=== PATIENT | male | born 1975 | race Caucasian/White ===

== ENCOUNTER 2019-03-23 09:46 | Inpatient (IN) | payer OTHER ==
[2019-03-23 10:12] VITALS: BMI 17.4
--- NOTE | 2019-03-23 12:14 | HP ---
CIWA Score Nausea/Vomitin-Mild Nausea/No Vomiting Muscle Tremors: 2 Anxiety: 2 Agitation: 1-Slight > Activity Paroxysmal Sweats: 2 Orientation: 1-Uncertain about Date Tacttile Disturbances: 1-Very Mild Itch/Numbness Auditory Disturbances: 2-Mild Harshness/Frighten Visual Disturbances: 2-Mild Sensitivity Headache: 0-None Present CIWA-Ar Total Score: 14 - Admission Criteria OASAS Guidelines: Admission for Medically Managed Detox: Requires at least one of the followin. CIWA greater than 12 2. Seizures within the past 24 hours 3. Delirium tremens within the past 24 hours 4. Hallucinations within the past 24 hours 5. Acute intervention needed for co occurring medical disorder 6. Acute intervention needed for co occurring psychiatric disorder 7. Severe withdrawal that cannot be handled at a lower level of care (continued vomiting, continued diarrhea, abnormal vital signs) requiring intravenous medication and/or fluids 8. Patient presents the following: CIWA greater than 12 Admission Criteria Met: Admission criteria met Admitting History and Physical - Admission Chief Complaint: alcohol withdrawal sx History of Present Illness: Patient is a 43 yo homeless male with hx of alcohol dependence is here seeking inpatient detox d/t withdrawal sx when he does not use. Denies hx of seizures or blackouts. PMHX: denies. Psych: anxiety reports no meds. Denies SI/HI or hx of suicide attempt. History Source: Patient Limitations to Obtaining History: No Limitations - Smoking History Smoking history: Current every day smoker Have you smoked in the past 12 months: Yes Aproximately how many cigarettes per day: 10 - Alcohol/Substance Use Hx Alcohol Use: Yes (VODKA) Admission [facility] Allergies/Adverse Reactions: Allergies Allergy/AdvReac Type Severity Reaction Status Date / Time Fish Containing Products AdvReac Unknown Verified 03/23/19 10:00 - Ebola screening Have you traveled outside of the country in the last 21 days: No Have you had contact with anyone from an Ebola affected area: No - Review of Systems Constitutional: Chills, Loss of Appetite, Unintentional Wgt. Loss ("tons of weight 20+ lbs") EENT: reports: No Symptoms Reported Respiratory: reports: No Symptoms reported Cardiac: reports: No Symptoms Reported GI: reports: Diarrhea, Nausea, Poor Appetite, Poor Fluid Intake : reports: No Symptoms Reported Musculoskeletal: reports: Back Pain Integumentary: reports: No Symptoms Reported Neuro: reports: Headache, Weakness, Dizziness Endocrine: reports: No Symptoms Reported Hematology: reports: No Symptoms Reported Psychiatric: reports: Orientated x3, Anxious Other Systems: Reviewed and Negative Patient History - Patient Medical History Hx Anemia: No Hx Asthma: No Hx Chronic Obstructive Pulmonary Disease (COPD): No Hx Cancer: No Hx Cardiac Disorders: No Hx Congestive Heart Failure: No Hx Hypertension: No Hx Hypercholesterolemia: No HX Cerebrovascular Accident: No Hx Seizures: No Hx Dementia: No Hx Diabetes: No Hx Gastrointestinal Disorders: No Hx Genitourinary Disorders: No Hx Sexually Transmitted Disorders: No Hx Renal Disease (ESRD): No Hx Thyroid Disease: No Hx Human Immunodeficiency Virus (HIV): No (NEGATIVE IN 11/2011) Hx Hepatitis C: No Hx Depression: No Hx Suicide Attempt: No Hx Bipolar Disorder: No Hx Schizophrenia: No - Patient Surgical History Past Surgical History: Yes Hx Neurologic Surgery: No Hx Cataract Extraction: No Hx Cardiac Surgery: No Hx Lung Surgery: No Hx Breast Surgery: No Hx Breast Biopsy: No Hx Abdominal Surgery: Yes (BILATERAL INGUINAL HERNIA REPAIR A CHILD) Hx Appendectomy: No Hx Cholecystectomy: No Hx Genitourinary Surgery: No Hx Section: No Hx Orthopedic Surgery: No Anesthesia Reaction: No - PPD History Previous Implant?: No Documented Results: Negative w/o proof Implanted On Prior [facility] Admission?: No Date: 08/19/12 PPD to be Administered?: Yes - Smoking Cessation Smoking history: Current every day smoker Have you smoked in the past 12 months: Yes Aproximately how many cigarettes per day: 10 Hx Chewing Tobacco Use: No Initiated information on smoking cessation: Yes 'Breaking Loose' booklet given: 03/23/19 - Substance & Tx. History Hx Alcohol Use: Yes Hx Substance Use: Yes Substance Use Type: Alcohol Hx Substance Use Treatment: Yes ([facility] 2012) - Substances abused Alcohol Substance route: Oral Frequency: Daily Amount used: 2 pints of vodka Age of first use: 15 Date of last use: 03/23/19 Admission Physical Exam [facility] - Vital Signs Vital Signs: Vital Signs - 24 hr 03/23/19 09:59 Temperature 97.2 F L Pulse Rate 94 H Respiratory 20 Rate Blood Pressure 126/81 - Physical General Appearance: Yes: Appropriately Dressed, Alcohol on Breath, Tremorous, Irritable, Anxious HEENTM: Yes: EOMI, Hearing grossly Normal, Normal ENT Inspection, Normocephalic , Normal Voice, NILA, Pharynx Normal, Tm's normal Respiratory: Yes: Chest Non-Tender, Lungs Clear, Normal Breath Sounds, No Respiratory Distress, No Accessory Muscle Use Neck: Yes: Within Normal Limits Breast: Yes: Breast Exam Deferred Cardiology: Yes: Regular Rhythm, Regular Rate Abdominal: Yes: Normal Bowel Sounds, Non Tender, Flat, Soft Genitourinary: Yes: Within Normal Limits Back: Yes: Normal Inspection Musculoskeletal: Yes: full range of Motion, Gait Steady, Pelvis Stable Extremities: Yes: Normal Capillary Refill, Normal Inspection, Normal Range of Motion, Non-Tender Neurological: Yes: pipeline operator II-XII NML intact, Fully Oriented, Alert, Motor Strength 5/5, Depressed Affect Integumentary: Yes: Normal Color, Warm, Diaphoresis Lymphatic: Yes: Within Normal Limits - Diagnostic (1) Alcohol dependence with withdrawal, uncomplicated Current Visit: Yes Status: Acute (2) Weight loss Current Visit: Yes Status: Acute (3) Nicotine dependence Current Visit: Yes Status: Chronic Qualifiers: Nicotine product type: cigarettes Substance use status: uncomplicated Qualified Code(s): F17.210 - Nicotine dependence, cigarettes, uncomplicated Cleared for Admission S - Detox or Rehab [facility] Level of Care: Medically Managed Detox Regimen/Protocol: Librium Breathalyzer - Breathalyzer Breathalyzer: 0.066 Urine Drug Screen - Test Device Lot number: [id number] Expiration date: 10/05/20 - Control Is test valid?: Yes - Results Drug screen NEGATIVE: No Urine drug screen results: THC-Marijuana Inpatient Rehab Admission - Rehab Decision to Admit Inpatient rehab admission?: No
[2019-03-23] MEDS ORDERED: hydrOXYzine PAMOATE 25 MG CAPSULE (FP) PO PRN (12:17)
[2019-03-23] MEDS ORDERED: MAGNESIUM CITRATE 300 ML BOTTLE PO PRN (12:17)
[2019-03-23] MEDS ORDERED: NICOTINE POLACRILEX 2 MG GUM BUC PRN (12:17)
[2019-03-23] MEDS ORDERED: MENTHOL/PHENOL 1 EACH UD MM PRN (12:17)
[2019-03-23] MEDS ORDERED: MAG HYDROX/AL HYDROX/SIMETH 30 ML UNIT-DOSE CUP PO PRN (12:17)
[2019-03-23] MEDS ORDERED: MAGNESIUM HYDROX 2400MG/30ML ORAL SUSPENSION 30 ML CUP PO PRN (12:17)
[2019-03-23] MEDS ORDERED: MELATONIN 5 MG TABLETS PO PRN (12:17)
[2019-03-23] MEDS ORDERED: BISMUTH SUBSALICYLATE 262 MG/15 ML BTL PO PRN (12:17)
[2019-03-23] MEDS ORDERED: ACETAMINOPHEN 325 MG TABLET (FP) PO PRN ×2 (12:17)
[2019-03-23] MEDS ORDERED: IBUPROFEN 400 MG TABLET (FP) PO PRN (12:17)
[2019-03-23] MEDS ORDERED: METHOCARBAMOL 500 MG TABLET PO PRN (12:17)
[2019-03-23] MEDS: chlordiazePOXIDE HCL 25 MG CAPSULE PO PRN (14:37)
[2019-03-23 17:19] LABS: HEMATOCRIT 40.4 % (35.4-49); HEMOGLOBIN 13.9 GM/dL (11.7-16.9); MCH 36.1 pg (25.7-33.7); MCHC 34.4 g/dl (32.0-35.9); MEAN CELL VOLUME 104.9 fl (80-96); MEAN PLT VOLUME 8.6 fl (7.5-11.1); PLATELET COUNT 47 K/MM3 (134-434); RBC 3.85 M/mm3 (4.00-5.60); RDW 12.7 % (11.9-15.9); WHITE BLOOD COUNT 3.4 K/mm3 (4.0-10.0)
[2019-03-23] MEDS: chlordiazePOXIDE HCL 25 MG CAPSULE PO SCH ×2 (17:58→22:08)
[2019-03-23 18:03] LABS: ALBUMIN 4.2 g/dl (3.4-5.0); BILIRUBIN,TOTAL 0.4 mg/dL (0.2-1); BLOOD UREA NITROGEN 6.9 mg/dL (7-18); CALCIUM 9.5 mg/dL (8.5-10.1); CREATININE 0.7 mg/dL (0.55-1.3); POTASSIUM 3.5 mmol/L (3.5-5.1); TOT PROT 7.6 g/dl (6.4-8.2)
[2019-03-23] MEDS: THIAMINE HCL 100 MG TABLET (FP) PO SCH (22:08)
[2019-03-24] MEDS: chlordiazePOXIDE HCL 25 MG CAPSULE PO SCH ×4 (06:17→22:30)
[2019-03-24] MEDS: PRENATAL VITAMINS W/ FOLIC ACID TABLET (FP) PO SCH (10:33)
[2019-03-24] MEDS: NICOTINE 14 MG/24 HOURS TOPICAL PATCH TD SCH (10:35)
--- NOTE | 2019-03-24 13:04 | PN ---
S CIWA - CIWA Score Nausea/Vomitin Muscle Tremors: 3 Anxiety: 1-Mildly Anxious Agitation: 1-Slight > Activity Paroxysmal Sweats: 2 Orientation: 0-Oriented Tacttile Disturbances: 2-Mild Itch/Numbness/Burn Auditory Disturbances: 0-None Visual Disturbances: 0-None Headache: 0-None Present CIWA-Ar Total Score: 11 BHS Progress Note (SOAP) Subjective: interrupted sleep, sweats, shakes , tired , decreased appetite Objective: 03/24/19 13:04 Vital Signs Temperature 98.5 F 03/24/19 09:23 Pulse Rate 91 H 03/24/19 09:23 Respiratory Rate 03/24/19 09:23 Blood Pressure 128/90 03/24/19 09:23 O2 Sat by Pulse Oximetry (%) Laboratory Tests 03/23/19 03/23/19 03/23/19 14:00 14:00 14:00 WBC 3.4 L RBC 3.85 L Hgb 13.9 Hct 40.4 MCV 104.9 H MCH 36.1 H D MCHC 34.4 RDW 12.7 Plt Count 47 L D MPV 8.6 Sodium 137 Potassium 3.5 Chloride 97 L Carbon Dioxide 33 H Anion Gap 7 L BUN 6.9 L Creatinine 0.7 Est GFR (CKD-EPI)AfAm 134.91 Est GFR (CKD-EPI)NonAf 116.40 Random Glucose 123 H Calcium 9.5 Total Bilirubin 0.4 AST 423 H ALT 341 H Alkaline Phosphatase 76 Total Protein 7.6 Albumin 4.2 RPR Titer Nonreactive pt aox3 in nad ambulating , mild tremors 03/24/19 13:06 Assessment: 03/24/19 13:05 withdrawal sx's Plan: cont. detox increase fluids
--- NOTE | 2019-03-24 16:27 | CONSULT ---
[facility] Psychiatric Consult - Data Date of interview: 03/24/19 Admission source: [facility] Identifying data: Patient is approached by this flex o writer operator for psychiatric interview. Mr Dave is found asleep. Resting comfortably. No distress noted. Nursing staff is made aware.
[2019-03-24] MEDS: THIAMINE HCL 100 MG TABLET (FP) PO SCH (22:30)
[2019-03-25] MEDS ORDERED: chlordiazePOXIDE HCL 25 MG CAPSULE PO SCH (05:00)
[2019-03-25] MEDS: chlordiazePOXIDE HCL 25 MG CAPSULE PO PRN (05:35)
[2019-03-25] MEDS: PRENATAL VITAMINS W/ FOLIC ACID TABLET (FP) PO SCH (11:13)
[2019-03-25] MEDS: NICOTINE 14 MG/24 HOURS TOPICAL PATCH TD SCH (11:13)
[2019-03-25 11:44] LABS: EPI CELLS 4.8 /HPF (0-5/HPF); HYALINE CASTS 19 /lpf (0-8); PH,URINE >= 9.0 (5.0-8.0); URINE APPEARANCE TURBID; URINE BACTERIA 30.3 /hpf (NEGATIVE); URINE BILIRUBIN NEGATIVE (NEGATIVE); URINE COLOR DK YELLOW; URINE GLUCOSE (UA) NEGATIVE (NEGATIVE); URINE KETONE TRACE (NEGATIVE); URINE LEUK ESTERASE TRACE (NEGATIVE); URINE NITRITE POSITIVE (NEGATIVE); URINE PROTEIN 1+ (NEGATIVE); URINE WBC 2 /hpf (0-5)
[2019-03-25 11:46] LABS: SGOT/AST 162 U/L (15-37); SGPT/ALT 226 U/L (13-61)
--- NOTE | 2019-03-25 11:49 | PN ---
[facility] CIWA - CIWA Score Nausea/Vomitin-No Nausea/No Vomiting Muscle Tremors: 2 Anxiety: 3 Agitation: 0-Normal Activity Paroxysmal Sweats: 3 Orientation: 0-Oriented Tacttile Disturbances: 0-None Auditory Disturbances: 0-None Visual Disturbances: 0-None Headache: 1-Very Mild CIWA-Ar Total Score: 9 S Progress Note (SOAP) Subjective: c/o sweats, anxiety, shakes, and headache. Objective: 03/25/19 11:52 Vital Signs 03/25/19 03/25/19 06:38 09:13 Temperature 99.3 F 98.0 F Pulse Rate 81 117 H Respiratory 16 16 Rate Blood Pressure 104/71 108/77 Laboratory Last Values WBC 3.4 K/mm3 (4.0-10.0) L 03/23/19 14:00 RBC 3.85 M/mm3 (4.00-5.60) L 03/23/19 14:00 Hgb 13.9 GM/dL (11.7-16.9) 03/23/19 14:00 Hct 40.4 % (35.4-49) 03/23/19 14:00 MCV 104.9 fl (80-96) H 03/23/19 14:00 MCH 36.1 pg (25.7-33.7) H D 03/23/19 14:00 MCHC 34.4 g/dl (32.0-35.9) 03/23/19 14:00 RDW 12.7 % (11.9-15.9) 03/23/19 14:00 Plt Count 47 K/MM3 (134-434) L D 03/23/19 14:00 MPV 8.6 fl (7.5-11.1) 03/23/19 14:00 Sodium 137 mmol/L (136-145) 03/23/19 14:00 Potassium 3.5 mmol/L (3.5-5.1) 03/23/19 14:00 Chloride 97 mmol/L (98-107) L 03/23/19 14:00 Carbon Dioxide 33 mmol/L (21-32) H 03/23/19 14:00 Anion Gap 7 MMOL/L (8-16) L 03/23/19 14:00 BUN 6.9 mg/dL (7-18) L 03/23/19 14:00 Creatinine 0.7 mg/dL (0.55-1.3) 03/23/19 14:00 Est GFR (CKD-EPI)AfAm 134.91 03/23/19 14:00 Est GFR (CKD-EPI)NonAf 116.40 03/23/19 14:00 Random Glucose 123 mg/dL (74-106) H 03/23/19 14:00 Calcium 9.5 mg/dL (8.5-10.1) 03/23/19 14:00 Total Bilirubin 0.4 mg/dL (0.2-1) 03/23/19 14:00 AST 162 U/L (15-37) H 03/25/19 07:30 ALT 226 U/L (13-61) H 03/25/19 07:30 Alkaline Phosphatase 76 U/L (45-117) 03/23/19 14:00 Total Protein 7.6 g/dl (6.4-8.2) 03/23/19 14:00 Albumin 4.2 g/dl (3.4-5.0) 03/23/19 14:00 Urine Color Dk yellow 03/25/19 07:30 Urine Appearance Turbid 03/25/19 07:30 Urine pH >= 9.0 (5.0-8.0) H D 03/25/19 07:30 Ur Specific [place] 1.026 (1.010-1.035) 03/25/19 07:30 Urine Protein 1+ (NEGATIVE) H 03/25/19 07:30 Urine Glucose (UA) Negative (NEGATIVE) 03/25/19 07:30 Urine Ketones Trace (NEGATIVE) H 03/25/19 07:30 Urine Blood Negative (NEGATIVE) 03/25/19 07:30 Urine Nitrite Positive (NEGATIVE) H 03/25/19 07:30 Urine Bilirubin Negative (NEGATIVE) 03/25/19 07:30 Urine Urobilinogen 1.0 mg/dL (0.2-1.0) 03/25/19 07:30 Ur Leukocyte Esterase Trace (NEGATIVE) 03/25/19 07:30 Urine WBC (Auto) 2 /hpf (0-5) 03/25/19 07:30 Urine Casts (Auto) 19 /lpf (0-8) 03/25/19 07:30 U Epithel Cells (Auto) 4.8 /HPF (0-5/HPF) 03/25/19 07:30 Urine Bacteria (Auto) 30.3 /hpf (NEGATIVE) 03/25/19 07:30 RPR Titer Nonreactive (NONREACTIVE) 03/23/19 14:00 Labs noted. Assessment: 03/25/19 11:53 AOX3, in no acute respiratory distress. Full ROM, ambulating in the unit with a wheelchair. Withdrawal symptoms. 03/25/19 11:53 Plan: continue detox.
[2019-03-25 13:19] VITALS: BP 114/87; PULSE 100; TEMP 96.7
[2019-03-25] MEDS ORDERED: CIPROFLOXACIN 250 MG TABLET (RESTRICTED TO ID) PO SCH (13:30)
--- NOTE | 2019-03-25 13:30 | CONSULT ---
[facility] Psychiatric Consult - Data Date of interview: 03/25/19 Admission source: [facility] Identifying data: Revisit to [facility] for this 43 y/o male self- referred for detoxification treatment. KIMMIE issues : alcohol, nicotine, cannabis. 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 Substance Abuse History: Discussed with patient. Details in current [facility] repot as follows : Smoking history: Current every day smoker. Have you smoked in the past 12 months: Yes. Aproximately how many cigarettes per day: 10. Hx Chewing Tobacco Use: No. Initiated information on smoking cessation: Yes. 'Breaking Loose' booklet given: 03/23/19. - Substance & Tx. History. Hx Alcohol Use: Yes. Hx Substance Use: Yes. Substance Use Type: Alcohol. Hx Substance Use Treatment: Yes ([facility] 2012). - Substances abused. Alcohol. Substance route : Oral. Frequency: Daily. Amount used: 2 pints of vodka. Age of first use: 15. Date of last use: 03/23/19 Medical History: Medical profile is remarkable for weight loss, unsteady gait and a distant history of bilateral herniorraphy. Psychiatric History: Patient denies history of psychiatric hospitalizations or OPD care. Mr Dave reports past admission to [facility] approximately five years ago. He admits to history of one suicide attempt, " in the early " but declines to provide details. Physical/Sexual Abuse/Trauma History: Patient denies history of abuse. Additional Comment: Urine drug screen results: THC-Marijuana. Noted. Mental Status Exam - Mental Status Exam Alert and Oriented to: Time, Place, Person Cognitive Function: Grossly Intact Patient Appearance: Unkempt (thin, frail habitus), Disheveled Mood: Withdrawn Affect: Appropriate, Normal Range Patient Behavior: Fatigued, Appropriate, Cooperative Speech Pattern: Clear (logical and coherent) Voice Loudness: Normal Thought Process: Intact, Goal Oriented Thought Disorder: Not Present Hallucinations: Denies Suicidal Ideation: Denies Homicidal Ideation: Denies Insight/Judgement: Poor Sleep: Fair Appetite: Poor, Weight loss Gait/Station: Other (unsteady gait) Psychiatric Findings - Problem List ([place] 1, 2,3) (1) Alcohol dependence with withdrawal, uncomplicated Current Visit: Yes Status: Acute (2) Nicotine dependence Current Visit: Yes Status: Chronic Qualifiers: Nicotine product type: cigarettes Substance use status: uncomplicated Qualified Code(s): F17.210 - Nicotine dependence, cigarettes, uncomplicated - Initial Treatment Plan Initial Treatment Plan: Psychoeducation. Sleep hygiene. Detoxification. Support. ETOH-MAT services are explained to patient : he declines. AA meetings. Observation.
--- NOTE | 2019-03-25 13:32 | PN ---
[facility] Progress Note Note: I was notified by the RN that pt is requesting to leave. Pt was seen at bedside moderately tremulous. Pt is in no acute respiratory distress. Pt is AOx3 but with poor judgement. Dr. Pena, was called to do psych evaluation on the pt. As per psych eval, pt is cleared psychiatrically. Pt is at risk for fall and Pt 's urinalysis is positive for uti. Pt will benefit from ED evaluation at this time. Verbal report given to Dr. Sruthi Collado at [facility] ED. Pt refused to go to the ED for further evaluation. Importance of going to the ED to be evaluated explained to pt but pt was adamant. Pt is instructed to pickup driver antibiotic from his preferred pharmacy ([facility]) and also to follow-up with his PMD. Pt verbalized understanding. Vital Signs 03/25/19 03/25/19 09:13 13:18 Temperature 98.0 F 96.7 F L Pulse Rate 117 H 100 H Respiratory 16 16 Rate Blood Pressure 108/77 114/87
[2019-03-25 13:35] LABS: INR 0.93 (0.83-1.09)
[2019-03-25 15:13] LABS: URINE RBC 8.6 /hpf (0-4)
--- NOTE | 2019-03-25 15:51 | DS ---
[facility] Detox Discharge Summary Admission Date: 03/23/19 Discharge Date: 03/25/19 (Pt left AMA) - History Present History: Alcohol Dependence Additional Comments: I was notified by the RN that pt is requesting to leave. Pt was seen at bedside moderately tremulous. Pt is in no acute respiratory distress. Pt is AOx3 but with poor judgement. Dr. Pena, was called to do psych evaluation on the pt. As per psych eval, pt is cleared psychiatrically. Pt is at risk for fall and Pt 's urinalysis is positive for uti. Pt will benefit from ED evaluation at this time. Verbal report given to Dr. Sruthi Collado at [facility] ED. Pt refused to go to the ED for further evaluation. Importance of going to the ED to be evaluated explained to pt but pt was adamant. Pt is instructed to burr picker antibiotic from his preferred pharmacy ([facility]) and also to follow-up with his PMD. Pt verbalized understanding. Pt left AMA. All attempts failed. Pertinent Past History: Alcohol use disorder. - Physical Exam Results Vital Signs: Vital Signs Temperature 96.7 F L 03/25/19 13:18 Pulse Rate 100 H 03/25/19 13:18 Respiratory Rate 16 03/25/19 13:18 Blood Pressure 114/87 03/25/19 13:18 O2 Sat by Pulse Oximetry (%) Vital Signs 03/25/19 03/25/19 09:13 13:18 Temperature 98.0 F 96.7 F L Pulse Rate 117 H 100 H Respiratory 16 16 Rate Blood Pressure 108/77 114/87 Laboratory Last Values WBC 3.4 K/mm3 (4.0-10.0) L 03/23/19 14:00 RBC 3.85 M/mm3 (4.00-5.60) L 03/23/19 14:00 Hgb 13.9 GM/dL (11.7-16.9) 03/23/19 14:00 Hct 40.4 % (35.4-49) 03/23/19 14:00 MCV 104.9 fl (80-96) H 03/23/19 14:00 MCH 36.1 pg (25.7-33.7) H D 03/23/19 14:00 MCHC 34.4 g/dl (32.0-35.9) 03/23/19 14:00 RDW 12.7 % (11.9-15.9) 03/23/19 14:00 Plt Count 47 K/MM3 (134-434) L D 03/23/19 14:00 MPV 8.6 fl (7.5-11.1) 03/23/19 14:00 PT with INR 11.00 SEC (9.7-13.0) 03/25/19 07:30 INR 0.93 (0.83-1.09) 03/25/19 07:30 Sodium 137 mmol/L (136-145) 03/23/19 14:00 Potassium 3.5 mmol/L (3.5-5.1) 03/23/19 14:00 Chloride 97 mmol/L (98-107) L 03/23/19 14:00 Carbon Dioxide 33 mmol/L (21-32) H 03/23/19 14:00 Anion Gap 7 MMOL/L (8-16) L 03/23/19 14:00 BUN 6.9 mg/dL (7-18) L 03/23/19 14:00 Creatinine 0.7 mg/dL (0.55-1.3) 03/23/19 14:00 Est GFR (CKD-EPI)AfAm 134.91 03/23/19 14:00 Est GFR (CKD-EPI)NonAf 116.40 03/23/19 14:00 Random Glucose 123 mg/dL (74-106) H 03/23/19 14:00 Calcium 9.5 mg/dL (8.5-10.1) 03/23/19 14:00 Total Bilirubin 0.4 mg/dL (0.2-1) 03/23/19 14:00 AST 162 U/L (15-37) H 03/25/19 07:30 ALT 226 U/L (13-61) H 03/25/19 07:30 Alkaline Phosphatase 76 U/L (45-117) 03/23/19 14:00 Total Protein 7.6 g/dl (6.4-8.2) 03/23/19 14:00 Albumin 4.2 g/dl (3.4-5.0) 03/23/19 14:00 Urine Color Dk yellow 03/25/19 07:30 Urine Appearance Turbid 03/25/19 07:30 Urine pH >= 9.0 (5.0-8.0) H D 03/25/19 07:30 Ur Specific [place] 1.026 (1.010-1.035) 03/25/19 07:30 Urine Protein 1+ (NEGATIVE) H 03/25/19 07:30 Urine Glucose (UA) Negative (NEGATIVE) 03/25/19 07:30 Urine Ketones Trace (NEGATIVE) H 03/25/19 07:30 Urine Blood Negative (NEGATIVE) 03/25/19 07:30 Urine Nitrite Positive (NEGATIVE) H 03/25/19 07:30 Urine Bilirubin Negative (NEGATIVE) 03/25/19 07:30 Urine Urobilinogen 1.0 mg/dL (0.2-1.0) 03/25/19 07:30 Ur Leukocyte Esterase Trace (NEGATIVE) 03/25/19 07:30 Urine WBC (Auto) 2 /hpf (0-5) 03/25/19 07:30 Urine RBC (Auto) 8.6 /hpf (0-4) 03/25/19 07:30 Urine Casts (Auto) 19 /lpf (0-8) 03/25/19 07:30 U Epithel Cells (Auto) 4.8 /HPF (0-5/HPF) 03/25/19 07:30 Urine Crystals (Auto) /hpf 03/25/19 07:30 Urine Bacteria (Auto) 30.3 /hpf (NEGATIVE) 03/25/19 07:30 RPR Titer Nonreactive (NONREACTIVE) 03/23/19 14:00 U/A + for UTI Pertinent Admission Physical Exam Findings: withdrawal symptoms. - Treatment Hospital Course: Detox Protocol Followed - Medication Discharge Medications: Ambulatory Orders Ciprofloxacin [Cipro (Restricted To Id)] 250 mg PO BID 7 Days #14 tablet - Diagnosis (1) UTI (urinary tract infection) Status: Acute (2) Alcohol dependence Status: Active (3) Alcohol dependence with withdrawal, uncomplicated Status: Acute (4) Nicotine dependence Status: Chronic Qualifiers: Nicotine product type: cigarettes Substance use status: uncomplicated Qualified Code(s): F17.210 - Nicotine dependence, cigarettes, uncomplicated - AMA Did Patient Leave Against Medical Advice: Yes
[2019-03-26] MEDS ORDERED: chlordiazePOXIDE HCL 10 MG CAPSULE PO PRN
[2019-03-26] MEDS ORDERED: chlordiazePOXIDE HCL 10 MG CAPSULE PO SCH (05:00)
[2019-03-27] MEDS ORDERED: chlordiazePOXIDE HCL 10 MG CAPSULE PO SCH (05:00)
[2019-03-28] MEDS ORDERED: chlordiazePOXIDE HCL 10 MG CAPSULE PO ONE (05:00)
== END 2019-03-25 14:09 | disposition left against medical advice (07) | DRG 770 ==
LOC: YASAS 09:46 → Y3N 12:55
PROVIDERS: ADMIT Allergy & Immunology; ATTEND Allergy & Immunology
PROC: HZ2ZZZZ Detoxification Services for Substance Abuse Treatment (ICD-10-PCS; principal; 2019-03-23)
DX: F10.230 Alcohol dependence with withdrawal, uncomplicated (principal); F17.210 Nicotine dependence, cigarettes, uncomplicated; N39.0 Urinary tract infection, site not specified; R26.89 Other abnormalities of gait and mobility; R63.4 Abnormal weight loss; Z68.1 Body mass index [BMI] 19.9 or less, adult; Z91.013 Allergy to seafood
CPT/HCPCS: 36415; 80053; 81003; 84450; 84460; 85027; 85610; 86593

== ENCOUNTER 2023-02-13 09:44 | Inpatient (IN) | payer BC ==
[2023-02-13 10:30] VITALS: BMI 17.2
[2023-02-13] MEDS ORDERED: ONDANSETRON *ODT* 4 MG TABLET SL PRN (12:23)
[2023-02-13] MEDS ORDERED: chlordiazePOXIDE HCL 25 MG CAPSULE PO PRN (12:23)
[2023-02-13] MEDS ORDERED: POLYETHYLENE GLYCOL (HEALTHYLAX) 3350 17 GM PACKET PO PRN (12:23)
[2023-02-13] MEDS ORDERED: NICOTINE POLACRILEX 4 MG GUM BUC PRN (12:23)
[2023-02-13] MEDS ORDERED: NALOXONE HCL (KLOXXADO) 8 MG SPRAY NS PRN (12:23)
[2023-02-13] MEDS ORDERED: hydrOXYzine PAMOATE 25 MG CAPSULE (FP) PO PRN (12:23)
[2023-02-13] MEDS ORDERED: MAGNESIUM HYDROX 2400MG/30ML ORAL SUSPENSION 30 ML CUP PO PRN (12:23)
[2023-02-13] MEDS ORDERED: LOPERAMIDE HCL 2 MG CAPSULE PO PRN (12:23)
[2023-02-13] MEDS ORDERED: IBUPROFEN 600 MG TABLET (FP) PO PRN (12:23)
[2023-02-13] MEDS ORDERED: METHOCARBAMOL 500 MG TABLET PO PRN (12:23)
[2023-02-13] MEDS ORDERED: BENZOCAINE/MENTHOL (CHLORASEPTIC ) LOZENGE MM PRN (12:23)
[2023-02-13] MEDS ORDERED: IBUPROFEN 400 MG TABLET (FP) PO PRN (12:23)
[2023-02-13] MEDS ORDERED: NALOXONE HCL 0.4 MG/ML VIAL IM PRN (12:23)
[2023-02-13] MEDS ORDERED: DICYCLOMINE HCL 10 MG CAPSULE PO PRN (12:23)
[2023-02-13] MEDS ORDERED: guaiFENesin 600 MG TABLET.ER (FP) PO PRN (12:23)
[2023-02-13] MEDS ORDERED: chlordiazePOXIDE HCL 25 MG CAPSULE PO ONE (12:23)
[2023-02-13] MEDS ORDERED: MAG HYDROX/AL HYDROX/SIMETH 30 ML UNIT-DOSE CUP PO PRN (12:23)
[2023-02-13] MEDS ORDERED: BISMUTH SUBSALICYLATE 524 MG/30 ML PO PRN (12:23)
[2023-02-13] MEDS ORDERED: BENZONATATE 200 MG CAPSULE PO PRN (12:23)
[2023-02-13] MEDS ORDERED: ACETAMINOPHEN 325 MG TABLET (FP) PO PRN (12:23)
[2023-02-13] MEDS ORDERED: NICOTINE 21 MG/24 HOURS TOPICAL PATCH TD PRN (12:23)
[2023-02-13] MEDS ORDERED: chlordiazePOXIDE HCL 25 MG CAPSULE ONE (13:50)
[2023-02-13] MEDS ORDERED: propRANOLol HCL 10 MG TABLET PO ONE (15:26)
[2023-02-13] MEDS: chlordiazePOXIDE HCL 25 MG CAPSULE PO SCH ×2 (17:55→22:20)
[2023-02-13] MEDS: MELATONIN 5 MG TABLETS PO SCH (22:20)
[2023-02-13] MEDS: THIAMINE HCL 100 MG TABLET (FP) PO SCH (22:20)
[2023-02-14] MEDS: chlordiazePOXIDE HCL 25 MG CAPSULE PO SCH ×4 (05:44→22:28)
[2023-02-14] MEDS: PRENATAL VITAMINS W/ FOLIC ACID TABLET (FP) PO SCH (10:10)
[2023-02-14 11:41] LABS: CHLORIDE 88 mmol/L (98-107); POTASSIUM 3.3 mmol/L (3.5-5.1); SODIUM 129 mmol/L (136-145)
[2023-02-14 11:42] LABS: CALCIUM 9.4 mg/dL (8.5-10.1)
[2023-02-14 11:43] LABS: ALBUMIN 3.6 g/dl (3.4-5.0); ANION GAP 8 mmol/L (4-13); BLOOD UREA NITROGEN 16.7 mg/dL (7-18); CO2 33 mmol/L (21-32); GLUCOSE,RANDOM 116 mg/dL (74-106); HEMATOCRIT 35.2 % (35.4-49); HEMOGLOBIN 11.8 GM/dL (11.7-16.9); MCH 35.8 pg (25.7-33.7); MCHC 33.5 g/dl (32.0-35.9); MEAN CELL VOLUME 106.7 fl (80-96); RBC 3.29 M/mm3 (4.00-5.60); RDW 13.3 % (11.9-15.9); WHITE BLOOD COUNT 3.8 K/mm3 (4.0-10.0)
[2023-02-14 11:46] LABS: SGOT/AST 160 U/L (15-37); SGPT/ALT 53 U/L (13-61)
[2023-02-14 11:47] LABS: BILIRUBIN,TOTAL 1.7 mg/dL (0.2-1)
[2023-02-14 11:48] LABS: TOT PROT 6.3 g/dl (6.4-8.2)
[2023-02-14 11:49] LABS: ALK PHOS 50 U/L (45-117)
[2023-02-14 12:21] LABS: PLATELET COUNT 31 10^3/uL (134-434)
[2023-02-14] MEDS ORDERED: POTASSIUM CHLORIDE ORAL LIQUID 20 MEQ/15 ML PO ONE (14:28)
[2023-02-14] MEDS: MELATONIN 5 MG TABLETS PO SCH (22:28)
[2023-02-14] MEDS: THIAMINE HCL 100 MG TABLET (FP) PO SCH (22:29)
[2023-02-15] MEDS: chlordiazePOXIDE HCL 25 MG CAPSULE PO SCH ×2 (05:32→10:56)
[2023-02-15 10:12] VITALS: RESP 18; TEMP 97.3
[2023-02-15] MEDS: PRENATAL VITAMINS W/ FOLIC ACID TABLET (FP) PO SCH (10:56)
[2023-02-15 11:05] LABS: POTASSIUM 3.7 mmol/L (3.5-5.1)
[2023-02-15 11:06] LABS: BLOOD UREA NITROGEN 12.9 mg/dL (7-18)
[2023-02-15 13:12] VITALS: BP 107/75; PULSE 93
[2023-02-16] MEDS ORDERED: chlordiazePOXIDE HCL 10 MG CAPSULE PO PRN
[2023-02-16] MEDS ORDERED: chlordiazePOXIDE HCL 10 MG CAPSULE PO SCH (05:00)
[2023-02-17] MEDS ORDERED: chlordiazePOXIDE HCL 10 MG CAPSULE PO SCH (05:00)
[2023-02-18] MEDS ORDERED: chlordiazePOXIDE HCL 10 MG CAPSULE PO ONE (05:00)
== END 2023-02-15 13:55 | disposition home or self-care (01) | DRG 897 ==
LOC: YASAS 09:44 → Y6N 14:10
PROVIDERS: ADMIT Allergy & Immunology; ATTEND Surgery
PROC: HZ2ZZZZ Detoxification Services for Substance Abuse Treatment (ICD-10-PCS; principal; 2023-02-13)
DX: F10.230 Alcohol dependence with withdrawal, uncomplicated (principal); Z68.1 Body mass index [BMI] 19.9 or less, adult; F12.10 Cannabis abuse, uncomplicated; F17.210 Nicotine dependence, cigarettes, uncomplicated; D69.6 Thrombocytopenia, unspecified; E86.0 Dehydration; E87.6 Hypokalemia; R05.3 Chronic cough; R63.4 Abnormal weight loss
CPT/HCPCS: 0241U-QW; 36415; 80048; 80053; 80307; 85027; 86780; 93005; 93010